=== PATIENT | female | born 1965 | race Caucasian/White ===

== ENCOUNTER 2020-02-28 17:31 | Emergency (ER) | payer MEDICAID ==
[~2020-02-28] VITALS: Ht 170.2 cm; Wt 78.6 kg
[2020-02-28 17:51] VITALS: BP 172/92
[2020-02-28] MEDS ORDERED: LIDOcaine 1% W/epiNEPHrine 1:200,000 10ml vial IJ ONE (18:45)
[2020-02-28] MEDS ORDERED: LIDOcaine 1% w/epiNEPHrine 1:200,000 30ml vial IJ ONE (18:50)
[2020-02-28] MEDS ORDERED: CEPH250T PO (19:08)
[2020-02-28] MEDS ORDERED: BACDS PO (19:08)
== END 2020-02-28 19:29 | disposition home or self-care (01) ==
LOC: ER 17:32
DX: L02.511 Cutaneous abscess of right hand (principal); M79.644 Pain in right finger(s); Z88.8 Allergy status to other drugs, medicaments and biological substances; Z79.2 Long term (current) use of antibiotics
CPT/HCPCS: 26010; 99283

== ENCOUNTER 2020-10-10 14:50 | Emergency (ER) | payer MEDICAID ==
[~2020-10-10] VITALS: Ht 170.2 cm; Wt 80.9 kg
[2020-10-10 15:21] VITALS: BP 122/76
[2020-10-10] MEDS ORDERED: ondansetron/PF 4mg/2ml inj IV ONE (15:40)
[2020-10-10] MEDS ORDERED: normal saline 1000ML IV soln IVB ONE ×2 (15:40→18:00)
[2020-10-10] MEDS ORDERED: acetaminophen 325mg tablet PO ONE (15:55)
[2020-10-10 15:57] LABS: BASOPHILS % (AUTO) 0.2 % (0-1); EOSINOPHILS # (AUTO) 0.1 X10'3 (0-0.9); EOSINOPHILS % (AUTO) 0.4 % (0-6); HEMATOCRIT 43.5 % (35.0-45.0); HEMOGLOBIN 14.5 g/dl (12.0-16.0); LYMPHOCYTES # (AUTO) 0.4 X10'3 (1.1-4.8); MEAN CORPUSCULAR HEMOGLOBIN 31.2 PG (27.0-31.0); MEAN CORPUSCULAR HGB CONC 33.3 g/dL (33.0-36.5); MEAN CORPUSCULAR VOLUME 93.7 FL (78-98); MEAN PLATELET VOLUME 8.4 FL (7.4-10.4); MONOCYTES # (AUTO) 0.8 X10'3 (0-0.9); MONOCYTES % (AUTO) 3.9 % (2-12); NEUTROPHILS # (AUTO) 18.4 X10'3 (1.8-7.7); NEUTROPHILS % (AUTO) 93.5 % (42-75); PLATELET COUNT 275 X10'3 (140-440); RED BLOOD COUNT 4.64 X10'6 (4.20-5.60); RED CELL DISTRIBUTION WIDTH 13.3 % (11.5-14.5); WHITE BLOOD COUNT 19.7 X10'3 (4.5-11.0)
[2020-10-10 16:09] LABS: PARTIAL THROMBOPLASTIN TIME 26 SECONDS (22-32)
[2020-10-10 16:16] LABS: ALANINE AMINOTRANSFERASE 78 U/L (12-78); ALBUMIN 3.9 G/DL (3.4-5.0); ALKALINE PHOSPHATASE 117 IU/L (46-116); ANION GAP 10 (8-16); ASPARTATE AMINO TRANSFERASE 38 U/L (10-37); BILIRUBIN,TOTAL 0.7 MG/DL (0.1-1.0); BLOOD UREA NITROGEN 20 MG/DL (7-18); BUN/CREATININE RATIO 16.1 (6.6-38.0); CALCIUM 9.4 MG/DL (8.5-10.1); CHLORIDE 104 MMOL/L (99-107); CREATININE 1.24 MG/DL (0.40-0.90); GLUCOSE 144 MG/DL (70-104); POTASSIUM 4.7 MMOL/L (3.5-5.1); SODIUM 139 MMOL/L (135-145); TOTAL CARBON DIOXIDE 24.9 MMOL/L (24-32); TOTAL PROTEIN 7.7 G/DL (6.4-8.2); eGFR 45 ML/MIN
[2020-10-10 16:25] LABS: CREATINE KINASE 220 U/L (26-192); LIPASE 313 U/L (73-393)
[2020-10-10 18:05] LABS: CLARITY,URINE SLIGHTLY CLOUDY (Clear); COLOR,URINE YELLOW (Yellow); GLUCOSE, URINE NEGATIVE (Neg); KETONES,URINE NEGATIVE (Neg); LEUKOCYTE ESTERASE ,URINE NEGATIVE (Neg); NITRITES, URINE NEGATIVE (Neg); OCCULT BLOOD,URINE NEGATIVE (Neg); PROTEIN,URINE TRACE mg/dl (Neg); UROBILINOGEN,URINE 0.2 E.U/dL (0.2-1.0)
[2020-10-10 18:06] LABS: UA COLLECTION TYPE CLN CATCH MIDSTREAM
[2020-10-10 18:15] LABS: BACTERIA,URINE FEW /HPF (Neg); RBC,URINE 0-2 /HPF (0-2); SQUAMOUS EPITHELIAL CELL,UR MODERATE /LPF (FEW); WBC,URINE 0-4 /HPF (0-4)
[2020-10-10 18:16] LABS: CAL OXALATE CRYSTALS 1+ /HPF (NEGATIVE)
[2020-10-10 18:18] LABS: COARSE GRANULAR CAST 0-3 /LPF (NEGATIVE)
[2020-10-10 18:20] LABS: MUCUS STRANDS MODERATE /LPF (Neg)
[2020-10-10 18:32] LABS: MAGNESIUM 1.9 MG/DL (1.5-2.4)
[2020-10-10] MEDS ORDERED: piperacillin/tazo 3.375gm/50ml 50 ML IV ONE (19:05)
[2020-10-10] MEDS ORDERED: AZIT500T9 PO (19:16)
== END 2020-10-10 21:26 | disposition home or self-care (01) ==
LOC: ER 14:51
DX: K52.9 Noninfective gastroenteritis and colitis, unspecified (principal); Z88.8 Allergy status to other drugs, medicaments and biological substances; Z79.2 Long term (current) use of antibiotics
CPT/HCPCS: 36415; 71045; 80053; 81001; 82550; 83690; 83735; 84145; 84484; 85025; 85610; 85730; 93005; 96361; 96365; 96375; 99285; J2405; J2543; J7030

== ENCOUNTER 2024-09-05 09:40 | Emergency (ER) | payer MEDICAID ==
[~2024-09-05] VITALS: Ht 170.2 cm; Wt 77.7 kg
[~2024-09-05 09:40] MED LIST: AZIT500T9 PO
[2024-09-05 09:44] VITALS: BP 167/88; PULSE 99; RESP 17; TEMP 98; O2SAT 100
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
[2024-09-05] MEDS ORDERED: TRIA15CR61 TOP (11:16)
[2024-09-05] MEDS: dexamethasone sod phosphate 10mg/ml inj IM STA (11:31)
== END 2024-09-05 11:37 | disposition home or self-care (01) ==
LOC: ER 09:40
DX: L23.1 Allergic contact dermatitis due to adhesives (principal); Z88.8 Allergy status to other drugs, medicaments and biological substances
CPT/HCPCS: 96372; 99283; J1100

== ENCOUNTER 2024-09-10 05:31 | Emergency (ER) | payer MEDICAID ==
[~2024-09-10] VITALS: Ht 170.2 cm; Wt 78.2 kg
[~2024-09-10 05:31] MED LIST changes: +TRIA15CR61 TOP
--- NOTE | 2024-09-10 06:18 | RADIOLOGY REPORT ---
CHEST RADIOGRAPH Indication: cough Technique: Single frontal view of the chest was obtained Comparison: CHEST,SINGLE VIEW on DOS: 10/10/20 IMPRESSION: Heart appears normal in size. The lungs appear clear without focal airspace opacity, effusion, or pn eumothorax
--- NOTE | 2024-09-10 07:00 | Physician Documentation ---
History of Present Illness ~ General Chief Complaint: Flu Symptoms Stated Complaint: POSS COVID Time Seen by MD: 06:08 OK to notify your PCP?: Yes Source: patient, RN/MD, RN notes reviewed, old records Mode of Arrival: POV Exam Limitations: no limitations History of Present Illness Initial Comments This pleasant female apparently felt sick approximately last Thursday. She has been having a slight cough aches pains myalgias no fevers no severe shortness of breath but does have a history of tobacco smoking and has used inhalers in the past. Nonproductive cough. Her head is pounding severe headache as well as joint pain. Patient is here for evaluation. She has no other complaints at this time. Her symptoms have been gradual in onset Medication Reconciliation Allergies: Coded Allergies: rofecoxib (Verified Adverse Reaction, Unknown, n/v, 09/10/24) Scheduled Azithromycin (Azithromycin), 1 TAB PO DAILY Dexamethasone* (Decadron*), 1 TAB PO DAILY Triamcinolone Acetonide 0.5% Crm* (Kenalog 0.5% Crm*), 1 APPLIC TOP Q12H Scheduled PRN albuterol inhaler (Pro-Air Inhaler), 2 PUFFS INH Q4HPRN PRN for wheezing Past Medical History Past Medical History: No Pertinent History Past Surgical History: noncontributory Smoking Status: Current every day smoker Alcohol Use: None Drug Use: none Review of Systems All Other Systems at this time: Reviewed and Negative Physical Exam Physical Exam Vital Signs: RN Vital Signs have been reviewed: Yes, Temperature: 98.3, Source: Oral, Heart Rate: 91, Respiratory Rate: 18, BP: 139/82, Pulse Oximetry: 97, Weight: 78.180 Physical Exam General: The patient is well developed, well nourished, nontoxic appearing and is in no acute distress. Skin: [place], warm and dry with no rashes. HEENT: Head was normocephalic and atraumatic. Eyes - pupils equal, round, reactive to light and accommodation. Extraocular movements were intact. Conjunctivae were nonicteric. Neck: Supple and nontender. There was no jugular venous distention, lymphadenopathy, thyromegaly or masses. Chest: Clear to auscultation bilaterally without rales or rhonchi. No accessory muscle use. No dullness to percussion. Trace expiratory wheeze Heart: Rate regular and rhythmic. S1, S2. No murmurs. Palpation of the chest wall was normal. No rubs or thrills. Abdomen: Soft, nontender and nondistended. Positive bowel sounds. No guarding or rebound. No hepatosplenomegaly or palpable masses. Extremities: No cyanosis, clubbing or edema. The patient moves all extremities. Pulses were equal and symmetric. Neurologic: Motor sensory grossly intact Psychologic: The patient was oriented to person, place and time. The patient demonstrated appropriate judgement and insight. Progress Results/Orders Reviewed/noted all lab results: Yes Results/Orders Completed Orders - SHERIF CHAMBERS MD Dexamethasone Tablet (Decadron Tablet) (09/10/24 07:10) Acetaminophen 325mg Tablet (Tylenol Tabl (09/10/24 07:10) Vital Signs 09/10/24 05:33 Temp 98.3 Pulse 91 Resp 18 B/P (MAP) 139/82 Pulse Ox 97 Laboratory Tests Test 09/10/24 05:40 SARS-CoV-2 Antigen (Rapid) Positive *A Re-Evaluation Re-Evaluation : Re-Evaluation: Improved Progress Patient was seen and examined. Patient was given reassurance. Patient is on day four of her symptoms. I offered her Paxlovid however she is tolerating her symptoms. There was no hypoxia no signs of complications from COVID such as pulmonary infection. Vitals are stable unlikely to have a pulmonary embolism. Patient denies any air hunger. After risk benefit discussion we will hold on the Paxlovid patient will obtain natural immunity patient was given steroids and inhaler if she gets any worsening symptoms. She was encouraged to take Tylenol Motrin fluids for her symptoms. EKG/XRAY/CT/US/VASC/MRI Chest X-Ray : Additional Comments CHEST RADIOGRAPH Indication: cough Technique: Single frontal view of the chest was obtained Comparison: CHEST,SINGLE VIEW on DOS: 10/10/20 IMPRESSION: Heart appears normal in size. The lungs appear clear without focal airspace opacity, effusion, or pneumothorax Electronically Signed by:CALI CORTEZ MD Date & Time: 09/10/24 0616 Dictated by: CALI CORTEZ MD Dictation date and time: 09/10/24 0556 Primary Care Provider: NO PRIMARY CARE PROVIDER cc: MARKUS TRINH DO ~ Medical Decision Making Additional info obtained from: old records Departure Disposition: HOME / SELF CARE / HOMELESS Impression: Primary Impression: COVID-19 Discharge Instructions: Influenza, Adult Referrals: NO PRIMARY CARE PROVIDER (PCP) Prescriptions Dexamethasone* (Decadron*) 4 Mg Tablet 1 TAB PO DAILY for 5 Days, #5 TAB Prov: SHERIF CHAMBERS MD 09/10/24 albuterol inhaler (Pro-Air Inhaler) 8.5 Gm Inhaler 2 PUFFS INH Q4HPRN PRN for wheezing for 30 Days, #18 GM Prov: SHERIF CHAMBERS MD 09/10/24 Education Educated: Patient Educated regarding: diagnosis, prognosis, need for follow up Signature Scribe Signature: No scribed Attestation: The note accurately reflects work and decisions made by me.Sherif Chambers MD 09/10/24 07:16 SHERIF CHAMBERS MD September 10, 2024 07:00
[2024-09-10] MEDS ORDERED: dexamethasone 4mg tablet PO ONE ×2 (07:10→07:20)
[2024-09-10] MEDS ORDERED: DEC4T PO (07:10)
[2024-09-10] MEDS ORDERED: ALBU8HFA INH (07:10)
[2024-09-10] MEDS ORDERED: dexamethasone 1mg tablet PO ONE (07:20)
[2024-09-10] MEDS: acetaminophen 325mg tablet PO ONE (07:38)
[2024-09-10] MEDS: dexamethasone 4mg tablet PO ONE (07:38)
[2024-09-10 07:49] VITALS: BP 116/72; PULSE 94; RESP 18; TEMP 98.3; O2SAT 100
== END 2024-09-10 07:45 | disposition home or self-care (01) ==
LOC: ER 05:32
DX: U07.1 COVID-19 (principal); F17.200 Nicotine dependence, unspecified, uncomplicated; Z88.8 Allergy status to other drugs, medicaments and biological substances; Z79.899 Other long term (current) drug therapy
CPT/HCPCS: 36415; 71045; 87811; 99284

== ENCOUNTER 2025-02-15 11:25 | Emergency (ER) | payer MEDICAID ==
[~2025-02-15] VITALS: Ht 170.2 cm; Wt 73.1 kg
[~2025-02-15 11:25] MED LIST changes: -TRIA15CR61 TOP
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
[2025-02-15] MEDS: LIDOcaine/epinephrine/tetracaine TOPICAL sol 3 ML syringe TOP ONE (12:59)
[2025-02-15 13:58] VITALS: BP 131/84; PULSE 75; RESP 15; TEMP 98.1; O2SAT 97
== END 2025-02-15 13:55 | disposition home or self-care (01) ==
LOC: ER 11:26
DX: S01.01XA Laceration without foreign body of scalp, initial encounter (principal); Z88.8 Allergy status to other drugs, medicaments and biological substances; V09.9XXA Pedestrian injured in unspecified transport accident, initial encounter; Y93.89 Activity, other specified; Y92.89 Other specified places as the place of occurrence of the external cause; Y99.8 Other external cause status
CPT/HCPCS: 12002; 99282; J3490; A6449